=== PATIENT | male | born 1955 | race Caucasian/White ===

== ENCOUNTER 2018-04-16 19:34 | Emergency (ER) | payer MEDICAID ==
[~2018-04-16] VITALS: Ht 182.9 cm; Wt 104.3 kg
[~2018-04-16 19:34] MED LIST: ALBU18HF2; APIX5TAB; BLOO-538; FURO40TA5; GEMF600T3; INSU100V3; INSU100V7; LISI2.5T2; METF10004; POTA10TA15; SIMV20TA6; SITA100T
--- NOTE | 2018-04-16 19:56 | NUR ---
PT AA/OX4 FROM HOME COMPLAINING OF ULQ ABDOMINAL PAIN X3 DAYS. ACTIVE BOWELS SOUNDS NOTED. AMBULATED TO HOSPITAL BED WITH WALKER. SKIN PINK, WARM, DRY. VSS. NAD. STABLE CONDITION. WILL CONTINUE TO MONITOR. AWAITING MD ORDERS. Addendum: 04/16/18 at 2316 by MAT NO N/V. SHARP TYPE PAIN.
[2018-04-16] MEDS ORDERED: MORPHINE SULFATE INJ 2 MG/ML DISP.SYRIN IV ONE (20:30)
[2018-04-16] MEDS ORDERED: ONDANSETRON HCL/PF 4 MG/2 ML VIAL IVP ONE (20:30)
[2018-04-16] MEDS ORDERED: IV NS 0.9% 1,000 ML BAG IV ONE ×2 (20:30→22:30)
[2018-04-16] MEDS ORDERED: ONDANSETRON HCL/PF 4 MG/2 ML VIAL ONE (20:37)
[2018-04-16 20:38] LABS: BASOPHILS # (AUTO) 0.3 /CMM (0.0-0.2); BASOPHILS % (AUTO) 2.2 % (0.0-2.0); EOSINOPHILS % (AUTO) 1.1 % (0.0-6.0); HEMATOCRIT 41 % (39-51); HEMOGLOBIN 13.9 g/dL (13.5-17.5); LYMPHOCYTES # (AUTO) 1.9 /CMM (0.8-4.8); LYMPHOCYTES % (AUTO) 15.4 % (20.0-44.0); MEAN CORPUSCULAR HEMOGLOBIN 30 PG (26.0-33.0); MEAN CORPUSCULAR HGB CONC 34 g/dl (31.0-36.0); MEAN CORPUSCULAR VOLUME 88 fL (80-96); MONOCYTES # (AUTO) 0.7 /CMM (0.1-1.30); MONOCYTES % (AUTO) 5.3 % (2.0-12.0); NEUTROPHILS # (AUTO) 9.4 /CMM (1.8-8.9); PLATELET COUNT (AUTO) 213 /CMM (150-450); RDW COEFFICIENT OF VARIATION 13.1 (11.5-15.0); RED BLOOD CELL COUNT(AUTO) 4.66 MIL/uL (4.5-6.0); WHITE BLOOD COUNT (AUTO) 12.4 K/uL (4.3-11.0)
[2018-04-16] MEDS ORDERED: MORPHINE SULFATE INJ 4 MG/ML DISP.SYRIN ONE (20:38)
[2018-04-16 20:44] LABS: APPEARANCE,URINE Clear (CLEAR); BILIRUBIN,URINE Negative (NEGATIVE); BLOOD, URINE Negative Ery/uL (NEGATIVE); COLOR,URINE Yellow (YELLOW); KETONES,URINE Negative (NEGATIVE); LEUKOCYTE ESTERASE ,URINE Negative (NEGATIVE); NITRITE, URINE Negative (NEGATIVE); PH,URINE 5.5 (5.0-8.0); PROTEIN,URINE Negative (NEGATIVE); UGLUCOSE 500 MG/DL mg/dL (NEGATIVE); UROBILINOGEN,URINE 0.2 EU/dL (0.2)
--- NOTE | 2018-04-16 20:55 | NUR ---
Patient is resting comfortably in bed with eyes closed. Easily aroused. VSS. WILL CONTINUE TO MONITOR.
[2018-04-16 20:56] LABS: TROPONIN I < 0.017 ng/mL (0.00-0.056)
[2018-04-16 21:44] LABS: ALANINE AMINOTRANSFERASE 27 U/L (12-78); ALBUMIN 3.6 g/dL (3.4-5.0); ALKALINE PHOSPHATASE 118 U/L (46-116); ASPARTATE AMINOTRANSFERASE 21 U/L (15-37); BILIRUBIN,DIRECT 0.2 mg/dL (0.0-0.2); CALCIUM, SERUM 9.5 mg/dL (8.5-10.1); CARBON DIOXIDE 24 mmol/L (21-32); CHLORIDE 96 mmol/L (98-107); CREATININE 1.6 mg/dL (0.6-1.3); LIPASE 419 U/L (73-393); POTASSIUM 4.2 mmol/L (3.5-5.1); SODIUM SERUM 129 mmol/L (136-145); TOTAL PROTEIN, SERUM 7.1 g/dL (6.4-8.2); UREA NITROGEN, BLOOD 40 mg/dL (7-18)
[2018-04-16 21:46] LABS: GLUCOSE 568 mg/dL (74-106)
[2018-04-16] MEDS ORDERED: INSULIN REGULAR, HUMAN 100 UNIT/ML 10 ML VIAL SQ ONE (22:00)
[2018-04-16] MEDS ORDERED: INSULIN REGULAR, HUMAN 100 UNIT/ML 10 ML VIAL ONE (22:05)
--- NOTE | 2018-04-16 22:13 | NUR ---
PT AA/OX 4. RESTING IN BED. NAD. VSS. STABLE CONDITION. WILL CONTINUE TO MONITOR.
--- NOTE | 2018-04-16 22:17 | NUR ---
LAB AT BEDSIDE
--- NOTE | 2018-04-16 22:35 | NUR ---
PT BROUGHT TO CT.
--- NOTE | 2018-04-16 23:25 | NUR ---
PT CONTINUES TO REST COMFORTABLY. EASILY AROUSED. NAD. VSS. STABLE CONDITION. WILL CONTINUE TO MONITOR
--- NOTE | 2018-04-16 23:40 | NUR ---
LAB AT BEDSIDE
[2018-04-17 00:18] LABS: CALCIUM, SERUM 8.5 mg/dL (8.5-10.1); CREATININE 1.4 mg/dL (0.6-1.3); POTASSIUM 4.3 mmol/L (3.5-5.1)
--- NOTE | 2018-04-17 01:09 | NUR ---
faxed over clinicals to [facility] casework manager at [phone]
--- NOTE | 2018-04-17 02:00 | NUR ---
DR. WINKLER SPEAKING TO DR. ANN REGARDING ADMISSION.
--- NOTE | 2018-04-17 02:01 | NUR ---
DR. ANN ACCEPTED PT. PT TO BE TRANSFERED TO [facility] M/S UNIT.
--- NOTE | 2018-04-17 02:37 | NUR ---
[facility] [phone] REPORT TO: [phone] [facility] ETA 4:30AM
--- NOTE | 2018-04-17 03:05 | NUR ---
REPORT GIVEN TO [facility] ARELLANO
[2018-04-17 04:20] VITALS: BP 136/84
--- NOTE | 2018-04-17 05:00 | NUR ---
PT [facility]ORS[facility] TO [facility]. PT STABLE CONDITION. NAD. VSS.
== END 2018-04-17 04:59 | disposition short-term general hospital (02) ==
LOC: ER 19:37
DX: E11.65 Type 2 diabetes mellitus with hyperglycemia (principal); R10.12 Left upper quadrant pain; F29 Unspecified psychosis not due to a substance or known physiological condition; F17.200 Nicotine dependence, unspecified, uncomplicated; Z79.4 Long term (current) use of insulin; Z79.84 Long term (current) use of oral hypoglycemic drugs; Z60.2 Problems related to living alone
CPT/HCPCS: 36415; 71045-TC; 80048-TC; 80076-TC; 81000-TC; 82962-TC; 83605-TC; 83690-TC; 84484-TC; 85025-TC; 85730-TC; 87040-TC; A4606; J1815; J2270; J2405; J7030; Z7610